=== PATIENT | female | born 1960 | race Two or more races ===

== ENCOUNTER 2019-12-03 18:19 | Inpatient (IN) | payer OTHER ==
[~2019-12-03] VITALS: Ht 154.9 cm; Wt 83.2 kg
[2019-12-03] MEDS ORDERED: DexAMETHasone SOD PHOS 10MG/1ML VIAL INJ IV ONE ×2 (20:30→21:00)
[2019-12-03] MEDS ORDERED: DOXYCYCLINE 100MG/250ML 250 ML IV ONE ×3 (20:30→21:30)
[2019-12-03 22:39] LABS: Basophils # (auto) 0 10 ^3/uL (0-0.2); Basophils % (auto) 0.3 % (0.0-2.0); Eosinophils # (auto) 0 10 ^3/uL (0-0.8); Eosinophils % (auto) 0.3 % (0.0-7.0); Hematocrit 46.4 % (36.0-46.0); Hemoglobin 15.4 g/dL (12.2-16.2); Lymphocytes # (auto) 1.6 10 ^3/uL (0.4-5.4); Lymphocytes % (auto) 24.2 % (10.0-50.0); Mean Corpuscular Hemoglobin 29.1 pg (28.0-32.0); Mean Corpuscular Hgb Conc. 33.3 g/dL (32.0-36.0); Mean Corpuscular Volume 87.5 fL (80.0-100.0); Monocytes # (auto) 0.7 10 ^3/uL (0-1.3); Monocytes % (auto) 10.4 % (0.0-12.0); Neutrophils # (auto) 4.1 10 ^3/uL (1.6-8.6); Neutrophils % (auto) 64.8 % (37.0-80.0); Nucleated Red Blood Cells % 0.1 %; Platelet Count (auto) 282 10^3/uL (140-450); Red Cell Distribution Width 12.9 % (11.8-14.3); White Blood Cell 6.4 10^3/uL (4.4-10.8)
[2019-12-03 22:57] LABS: Anion Gap 6 (5-15); Blood Urea Nitrogen 12 mg/dL (7-18); Calcium 8.9 mg/dL (8.5-10.1); Carbon Dioxide 29 mmol/L (21-32); Chloride 97 mmol/L (98-107); Glucose 344 mg/dL (74-106); Magnesium 2.3 mg/dL (1.6-2.6); Potassium 3.9 mmol/L (3.5-5.1); Sodium 132 mmol/L (136-145)
[2019-12-03 23:06] LABS: Alanine Aminotransferase 29 U/L (13-56); Alkaline Phosphatase 126 U/L (45-117); Aspartate Aminotransferase 34 U/L (15-37); BUN/Creatinine Ratio 16.4; Bilirubin, Total 0.4 mg/dL (0.2-1.0); GFR African American 105 mL/min; GFR Non-African American 87 mL/min; INR 0.92 (0.9-1.15); Partial Thromboplastin Time 29.8 sec (23.64-32.05); Total Protein 7.9 g/dL (6.4-8.2)
[2019-12-04] MEDS ORDERED: ACETAMINOPHEN 325 MG TAB PO PRN (00:30)
[2019-12-04] MEDS ORDERED: ONDANSETRON HCL 4 MG/2 ML VIAL IV PRN (00:30)
[2019-12-04] MEDS ORDERED: TEMAZEPAM 15 MG CAP PO PRN (00:30)
[2019-12-04] MEDS ORDERED: cloNIDine HCL 0.1 MG TAB PO PRN (00:30)
[2019-12-04] MEDS ORDERED: DEXTROSE (50%) 50ML SYRG IV PRN (00:30)
[2019-12-04] MEDS ORDERED: MORPHINE SULF INJ 2 MG/ML SYRINGE 1ML IV PRN (00:30)
[2019-12-04] MEDS ORDERED: NITROGLYCERIN 0.4 MG SL TAB SL PRN (00:30)
[2019-12-04 01:11] LABS: CRP High Sensitivity 8.9 mg/dL (< 0.3)
[2019-12-04 03:20] VITALS: BP 132/79
--- NOTE | 2019-12-04 03:20 | NUR ---
Telemetry admit from [facility] admitted to Telemetry unit after SBAR received. Patient oriented to NASREEN RODNEY, primary RN, unit, room, bed, and unit policies regarding patient care and visiting hours. Patient now on continuous telemetry monitoring, tele box #13 and telemetry reading on arrival to unit is sinus rhythm . Patient placed on bedside oxygen 2l, weighed by bedscale and encouraged to call if they need something. All questions and concerns addressed, patient verbalized understanding. pt is aox4, no s/s of distress or sob
--- NOTE | 2019-12-04 03:42 | NUR ---
ADVISED PRIMARY RN THAT PATIENT CAME BACK POSITIVE FOR COVID
[2019-12-04 05:00] VITALS: BP 132/73
[2019-12-04] MEDS: InsuLIN REG 1unit/0.01ml Soln (100units/ml) SC SCH ×4 (06:19→23:43)
[2019-12-04] MEDS: ACCU-CHEK COMFORT CURVE STRIP VI SCH ×4 (06:20→23:39)
--- NOTE | 2019-12-04 07:35 | NUR ---
Opening Shift Note Assumed care of patient, awake and alert. No S/S of distress/SOB or pain. Instructed on POC and to call for assist PRN, will continue to monitor for changes Q1hr and PRN.
[2019-12-04] MEDS: ALBUTEROL SULF HFA 90MCG INH 200DOSE IN SCH ×3 (07:59→21:12)
[2019-12-04] MEDS: ASCORBIC ACID 1,000 MG TAB PO SCH (08:39)
[2019-12-04] MEDS: FAMOTIDINE 20 MG TAB PO SCH ×2 (08:39→21:11)
[2019-12-04] MEDS: ZINC SULFATE 220mg CAP or TAB PO SCH (08:39)
[2019-12-04] MEDS: CHOLECALCIFEROL (VITD3) 2,000 UNIT CAP PO SCH (08:40)
[2019-12-04 09:00] VITALS: BP 139/72
--- NOTE | 2019-12-04 09:21 | NUR ---
ss consult Per consult advanced directive. Patient has been provided with advanced directive information. Addendum: 12/04/19 at 0922 by Maureen CHRISTIANSON Amended: Links added.
[2019-12-04] MEDS: DOXYCYCLINE 100MG/250ML 250 ML IV SCH ×2 (10:00→21:12)
[2019-12-04] MEDS ORDERED: ENOXAPARIN SOD 40 MG/0.4 ML SYRINGE SC SCH ×2 (10:00)
[2019-12-04] MEDS ORDERED: INSULIN 70/30 1unit/0.01ml Susp (100units/ml) SC ONE (11:30)
[2019-12-04] MEDS ORDERED: BUDESONIDE (INHALATION) 0.5 MG/2 ML NEB NEB ONE (11:45)
[2019-12-04 12:14] LABS: Cholesterol 195 mg/dL (< 200); HDL Cholesterol 46 mg/dL (40-59); LDL Cholesterol 121 mg/dL (< 100); Triglycerides 277 mg/dL (< 150)
[2019-12-04 13:00] VITALS: BP 117/76
[2019-12-04] MEDS ORDERED: ERGOCALCIFEROL 50,000 UNIT(1.25MG) CAP PO SCH (14:45)
[2019-12-04] MEDS ORDERED: GABAPENTIN 100 MG CAP PO ONE (15:00)
--- NOTE | 2019-12-04 15:13 | NUR ---
IV insertion IV access obtained, via clean sterile technique by inserting gauge catheter at RIGHT FOREARM after 2 attempt(s). IV secured properly. No trauma to site. Patient tolerated well. IV removal IV DC'd with clean sterile technique, catheter fully intact. Pressure dressing applied to site. Patient tolerated well.
[2019-12-04 17:00] VITALS: BP 133/94
--- NOTE | 2019-12-04 17:38 | NUR ---
PAGED ON-CALL HOSPITALIST RE: PT COMPLAINING OF PAINFUL COUGH AND REQUESTING COUGH MEDICINE. AWAITING CALL BACK
[2019-12-04] MEDS ORDERED: guaiFENesin 200 MG/10 ML UD PO PRN (18:15)
--- NOTE | 2019-12-04 19:30 | NUR ---
Opening Shift Note Assumed care of patient, awake and alert x4. Patient denies shortness of breath or pain at this time. No sign/symptoms of distress noted or verbalized at this time. Instructed on plan of care and encouraged patient to call for assistance as needed, patient verbalized understanding. Bed is locked in lowest position, side rails x 2 are up, and call light is within reach.
[2019-12-04] MEDS: GABAPENTIN 300 MG CAP PO SCH (21:11)
[2019-12-04] MEDS: ENOXAPARIN SOD 80 MG/0.8ML SYRINGE SC SCH (21:12)
[2019-12-04 22:00] VITALS: BP 135/90
[2019-12-04] MEDS ORDERED: INSULIN 70/30 1unit/0.01ml Susp (100units/ml) SC SCH (22:00)
[2019-12-04 22:39] LABS: Urine Bacteria NONE SEEN /hpf (None Seen); Urine Blood Negative /uL (Negative); Urine Specific Gravity 1.022 (1.001-1.035); Urine WBC 1 /hpf (0 - 5)
[2019-12-04] MEDS: BUDESONIDE (INHALATION) 0.5 MG/2 ML NEB NEB SCH (23:33)
[2019-12-05 03:24] VITALS: BP 135/90
[2019-12-05 05:04] VITALS: BP 122/80
[2019-12-05 05:05] VITALS: BP 120/70
[2019-12-05] MEDS: ALBUTEROL SULF HFA 90MCG INH 200DOSE IN SCH ×2 (05:53→14:34)
[2019-12-05] MEDS: ACCU-CHEK COMFORT CURVE STRIP VI SCH ×3 (05:53→17:34)
[2019-12-05] MEDS: InsuLIN REG 1unit/0.01ml Soln (100units/ml) SC SCH ×3 (05:54→18:01)
--- NOTE | 2019-12-05 08:00 | NUR ---
ASSESSMENT NOTE PT IS ALERT ORIENTED X4, SITTING AT THE SIDE OF THE BED, IN ROOM AIR, NO DISTRESS NOTED, ABLE TO SELF REPOSITION, AMBULATE NEEDED, PAIN 0/10, STATED I HAVE NO BM FOR PAST 2 DAYS >, CALL LIGHT WITHIN REACH
[2019-12-05] MEDS: BUDESONIDE (INHALATION) 0.5 MG/2 ML NEB NEB SCH (08:02)
[2019-12-05 08:37] VITALS: BP 122/72
[2019-12-05] MEDS: ZINC SULFATE 220mg CAP or TAB PO SCH (09:10)
[2019-12-05] MEDS: DOXYCYCLINE 100MG/250ML 250 ML IV SCH (09:10)
[2019-12-05] MEDS: GABAPENTIN 300 MG CAP PO SCH (09:10)
[2019-12-05] MEDS: FAMOTIDINE 20 MG TAB PO SCH (09:11)
[2019-12-05] MEDS: ENOXAPARIN SOD 80 MG/0.8ML SYRINGE SC SCH (09:11)
[2019-12-05] MEDS: ASCORBIC ACID 1,000 MG TAB PO SCH (09:11)
[2019-12-05] MEDS: CHOLECALCIFEROL (VITD3) 2,000 UNIT CAP PO SCH (09:11)
[2019-12-05 09:39] LABS: Basophils # (auto) 0 10 ^3/uL (0-0.2); Basophils % (auto) 0.3 % (0.0-2.0); Eosinophils # (auto) 0.1 10 ^3/uL (0-0.8); Eosinophils % (auto) 1.5 % (0.0-7.0); Hematocrit 42.5 % (36.0-46.0); Hemoglobin 14.4 g/dL (12.2-16.2); Lymphocytes # (auto) 1.7 10 ^3/uL (0.4-5.4); Lymphocytes % (auto) 39.3 % (10.0-50.0); Mean Corpuscular Hemoglobin 29.2 pg (28.0-32.0); Mean Corpuscular Hgb Conc. 33.9 g/dL (32.0-36.0); Mean Corpuscular Volume 86.2 fL (80.0-100.0); Monocytes # (auto) 0.4 10 ^3/uL (0-1.3); Monocytes % (auto) 10.5 % (0.0-12.0); Neutrophils # (auto) 2.1 10 ^3/uL (1.6-8.6); Neutrophils % (auto) 48.4 % (37.0-80.0); Nucleated Red Blood Cells % 0.1 %; Platelet Count (auto) 322 10^3/uL (140-450); Red Blood Cells 4.93 10^6/uL (4.0-5.20); Red Cell Distribution Width 12.8 % (11.8-14.3); White Blood Cell 4.3 10^3/uL (4.4-10.8)
[2019-12-05 10:00] LABS: Albumin 2.7 g/dL (3.4-5.0); Calcium 8.8 mg/dL (8.5-10.1)
[2019-12-05] MEDS ORDERED: INSULIN 70/30 1unit/0.01ml Susp (100units/ml) SC SCH (10:00)
[2019-12-05] MEDS ORDERED: BUDESONIDE (INHALATION) 180 MCG IH IN SCH (10:00)
[2019-12-05 10:12] LABS: BUN/Creatinine Ratio 11.1; Bilirubin, Total 0.4 mg/dL (0.2-1.0); CRP High Sensitivity 2.84 mg/dL (< 0.3); Total Protein 7.1 g/dL (6.4-8.2)
--- NOTE | 2019-12-05 11:45 | NUR ---
DR MADISON AT BED SIDE FOLLOWING UP ON PT, AWARE PT IS ON ROOM AIR, SAT 94%, PT STATED I GET A MILD SHORTNESS OF BREATH ON EXERTION > DR MADISON INFORM PT THAT SHE WILL FEEL BETTER IN 2 DAYS, ADVICE PT TO SELF ISOLATION FOR 14 DAYS, WILL GO HOME WITH DOXYCYCLINE AND METFORMIN, WILL BE CALLED IN TO [facility]
[2019-12-05] MEDS ORDERED: POLYETHYLENE GLYCOL 17 GM PWDR PO ONE (12:00)
[2019-12-05 12:52] VITALS: BP 135/81
--- NOTE | 2019-12-05 15:45 | NUR ---
NEW RX ARE NOT READY YET IN [facility], PT AWARE
--- NOTE | 2019-12-05 16:38 | NUR ---
NEW RX OF ELIQUIS 5MG TOTAL 60 TAB, GIVEN TO PT
[2019-12-05 17:00] VITALS: BP 140/77
--- NOTE | 2019-12-05 17:00 | NUR ---
RIDE HOME PT IS WAITING FOR HER TO PICK HER UP AFTER GETTING OFF FROM WORK
--- NOTE | 2019-12-05 18:55 | NUR ---
PT CONTINUE STABLE, CONTINUE MONITORING, CONTINUE WAITING FOR HER TO PICK HER UP
--- NOTE | 2019-12-05 20:20 | NUR ---
Discharge Discharge instructions given as ordered by shikha Zepeda. This RN reinforced education. Encourage to follow up with primary care provider as ordered. All questions and concerns were addressed. Patient verbalized understanding. Medication reconciliation form completed and copy given to patient. Prescription given to patient. IV removed by shikha Zepeda and telemetry unit returned to ICU by shikha COTTON. Patient taken to vehicle via wheelchair with all personal belongings, accompanied by staff member followed by EVS and security. No sign/symptoms of distress noted or verbalized at time of departure.
== END 2019-12-05 20:20 | disposition home or self-care (01) | DRG 177 ==
LOC: ER 18:19 → TELE 18:20 → TELE-EAST 12-04 03:00
PROVIDERS: ADMIT Nurse Practitioner; ATTEND Internal Medicine
DX: U07.1 COVID-19 (principal); J12.89 Other viral pneumonia; N18.6 End stage renal disease; I12.0 Hypertensive chronic kidney disease with stage 5 chronic kidney disease or end stage renal disease; E66.9 Obesity, unspecified; E11.22 Type 2 diabetes mellitus with diabetic chronic kidney disease; E55.9 Vitamin D deficiency, unspecified; Z91.19 Patient's noncompliance with other medical treatment and regimen; Z68.34 Body mass index [BMI] 34.0-34.9, adult
CPT/HCPCS: 36415; 71045; 80053; 80061; 81001; 82043; 82306; 82607; 82728; 82962; 83036; 83605; 83615; 83735; 84443; 84484; 85025; 85379; 85610; 85652; 85730; 86141; 87070; 87804; 87880; 93005; 94640; 96365; 96372; G0378; J1815; J3490